=== PATIENT | female | born 1995 | race Caucasian/White ===

== ENCOUNTER 2023-09-19 01:48 | Emergency (ER) | payer SELFPAY ==
[~2023-09-19] VITALS: Ht 160 cm; Wt 73.0 kg
[2023-09-19 01:56] VITALS: O2SAT 98
[2023-09-19] MEDS ORDERED: CEPH500T MT (03:00)
[2023-09-19] MEDS ORDERED: METR-167 MT (03:00)
[2023-09-19 03:19] VITALS: BP 125/77; PULSE 87; RESP 18; TEMP 98
== END 2023-09-19 03:20 | disposition home or self-care (01) ==
LOC: ER 01:48
DX: T19.2XXA Foreign body in vulva and vagina, initial encounter (principal); X58.XXXA Exposure to other specified factors, initial encounter; Y93.89 Activity, other specified; Y92.89 Other specified places as the place of occurrence of the external cause; Y99.8 Other external cause status
CPT/HCPCS: 99284